=== PATIENT | male | born 1940 | race Native Hawaiian/Other Pacific Islander ===

== ENCOUNTER 2019-02-14 15:13 | Outpatient (CLI) | payer OTHER ==
[~2019-02-14 15:13] MED LIST: ASPIR-8181 MG PO; METOPROLOL50 MG PO
== END 2019-02-14 15:15 | disposition short-term general hospital (02) ==
LOC: AMB 15:13
DX: M25.552 Pain in left hip (principal); W18.39XA Other fall on same level, initial encounter; Y92.018 Other place in single-family (private) house as the place of occurrence of the external cause
CPT/HCPCS: A0425; A0427

== ENCOUNTER 2019-02-14 15:23 | Emergency (ER) | payer OTHER ==
[~2019-02-14] VITALS: Ht 179.1 cm; Wt 84.8 kg
[2019-02-14 21:17] VITALS: BP 122/72; TEMP 98.1
== END 2019-02-14 21:20 | disposition short-term general hospital (02) ==
LOC: ED 15:23
DX: S72.012A Unspecified intracapsular fracture of left femur, initial encounter for closed fracture (principal); I69.954 Hemiplegia and hemiparesis following unspecified cerebrovascular disease affecting left non-dominant side; W18.39XA Other fall on same level, initial encounter; Y92.89 Other specified places as the place of occurrence of the external cause
CPT/HCPCS: 96375; 96376; 99284; J1885; J3360

== ENCOUNTER 2019-10-25 10:27 | Outpatient (CLI) | payer OTHER ==
[2019-10-25] MEDS ORDERED: LIPITOR40 MG PO (11:02)
[2019-10-25] MEDS ORDERED: ELIQUIS5 MG PO (11:02)
[2019-10-25] MEDS ORDERED: VITAMIN D50000 UNIT PO (11:03)
[2019-10-25] MEDS ORDERED: LISI5TAB10 PO (11:03)
[2019-10-25] MEDS ORDERED: PACERONE200 MG PO (11:04)
[2019-10-25] MEDS ORDERED: SPIRONOLACT25 MG PO (11:04)
== END 2019-10-25 10:28 | disposition short-term general hospital (02) ==
LOC: AMB 10:27
DX: M79.672 Pain in left foot (principal); R23.8 Other skin changes
CPT/HCPCS: A0425; A0429

== ENCOUNTER 2019-10-25 10:32 | Emergency (ER) | payer OTHER ==
[~2019-10-25] VITALS: Ht 179.1 cm; Wt 81.6 kg
[2019-10-25 10:32] VITALS: TEMP 98.1
[2019-10-25] MEDS ORDERED: ELIQUIS5 MG PO (11:02)
[2019-10-25] MEDS ORDERED: LIPITOR40 MG PO (11:02)
[2019-10-25] MEDS ORDERED: VITAMIN D50000 UNIT PO (11:03)
[2019-10-25] MEDS ORDERED: LISI5TAB10 PO (11:03)
[2019-10-25] MEDS ORDERED: PACERONE200 MG PO (11:04)
[2019-10-25] MEDS ORDERED: SPIRONOLACT25 MG PO (11:04)
[2019-10-25 11:46] LABS: PLATELET COUNT 165 K/uL (142-355)
[2019-10-25 11:57] LABS: POTASSIUM 4.7 mmol/L (3.6-5.2)
[2019-10-25 12:09] LABS: PARTIAL THROMBOPLASTIN TIME 27.4 SECONDS (24.5-33.6)
[2019-10-25 14:00] VITALS: BP 126/82
== END 2019-10-25 14:00 | disposition home or self-care (01) ==
LOC: ED 10:50
PROVIDERS: Family Medicine
DX: I73.9 Peripheral vascular disease, unspecified (principal)
CPT/HCPCS: 80053; 85027; 85379; 85610; 85730; 99284

== ENCOUNTER 2020-02-02 10:14 | Outpatient (CLI) | payer OTHER ==
[~2020-02-02 10:14] MED LIST changes: +ELIQUIS5 MG PO; +LIPITOR40 MG PO; +LISI5TAB10 PO; +PACERONE200 MG PO; +SPIRONOLACT25 MG PO; +VITAMIN D50000 UNIT PO
== END 2020-02-02 19:01 | disposition home or self-care (01) ==
LOC: CT 10:14
DX: I70.223 Atherosclerosis of native arteries of extremities with rest pain, bilateral legs (principal)
CPT/HCPCS: 36415; 82565; 84520; Q9963